=== PATIENT | male | born 1945 | race Caucasian/White ===

== ENCOUNTER → 2017-07-16 | Outpatient (CLI) | payer MEDICARE, OTHER | LOC: COL.RAD 10:11 | DX: Z13.6 Encounter for screening for cardiovascular disorders (principal) ==

== ENCOUNTER → 2018-01-30 | Outpatient (CLI) | payer MEDICARE, OTHER | LOC: COL.RAD 13:13 | DX: M79.604 Pain in right leg (principal); R60.0 Localized edema ==

== ENCOUNTER → 2022-02-27 | Outpatient (CLI) | payer MEDICARE, OTHER | LOC: COL.VAS 09:30 | DX: N18.4 Chronic kidney disease, stage 4 (severe) (principal) ==

== ENCOUNTER → 2022-05-11 | Outpatient (CLI) | payer MEDICARE, OTHER | LOC: COL.RAD 14:38 | DX: Z01.818 Encounter for other preprocedural examination (principal) ==

== ENCOUNTER 2022-11-04 11:54 | Inpatient (IN) | payer MEDICARE, OTHER ==
[~2022-11-04] VITALS: Ht 180.3 cm; Wt 80.9 kg
[~2022-11-04 11:54] MED LIST: ASPIRIN 81M81 MG/TA2 PO; BRILINTA90 MG PO; CALCITRIOL PO; JANUVIA50 MG PO; LASIX 40MG TABL40 MG PO; LIPITOR 80MG80 MG PO; LIPITOR20 MG PO; LOTREL 10 MG-201 CAP; LOTREL 5/20 CAP1 CAP PO; NITRO-DUR0.4 MG/PAT TD; NORCO 325 MG-51 TAB PO; NOVOLOG FLEX100 U/ML SQ; TRESIBA FL100 UNIT/1 SQ; TRIAMCINOLONE A15 G3; VELTASSA8.4 GM PO
[2022-11-04 12:27] LABS: MEAN CELL VOLUME 91 fl (80.0-100.0); MEAN CORPUSCULAR HGB CONC 34 g/dl (33.0-37.0); PLATELET COUNT 145 K/mm3 (130-400); RED BLOOD COUNT 3.07 M/mm3 (4.20-5.60); REDCELL DISTRIBUTION WIDTH-CV 15.5 % (11.5-14.5)
[2022-11-04 12:38] LABS: HEMATOCRIT 27.8 % (42.0-52.0); HEMOGLOBIN 9.4 g/dl (13.5-18.0); MEAN CORPUSCULAR HEMOGLOBIN 31 pg (27-31)
[2022-11-04 12:56] LABS: BAND 1 % (0-10); BURR CELLS 3+; LYMPHOCYTE 2 % (20.0-51.0); NEUTROPHILS 93 % (42.0-75.2)
[2022-11-04 12:57] LABS: ANISOCYTOSIS 1+; PLATELET ESTIMATE NORMAL (NORMAL)
[2022-11-04 13:13] LABS: ALBUMIN 1.8 gm/dL (3.4-4.8); BILIRUBIN,TOTAL 0.7 mg/dL (0.2-1.2); CALCIUM 8.3 mg/dL (8.4-10.2); CREATININE, serum 4.16 mg/dL (0.72-1.25); POTASSIUM 4.5 mmol/L (3.5-4.5); TOTAL PROTEIN 5.4 gm/dL (6.2-8.1)
[2022-11-04 14:26] LABS: COLLECTION METHOD CATHETER
[2022-11-04 14:35] LABS: AMORPHOUS CRYSTAL Present (NOT PRESENT); BUDDING YEAST Present (NOT PRESENT); MUCOUS Present (NOT PRESENT); SQUAMOUS EPITHELIAL 0-2 /hpf (0-10); URINE BACTERIA Rare /hpf (NONE SEEN); URINE RBC 20-50 /hpf (0-2)
[2022-11-04 14:44] LABS: URINE APPEARANCE Cloudy (CLEAR/HAZY); URINE COLOR Yellow (YELLOW); URINE GLUCOSE TRACE (NEGATIVE); URINE KETONE 2+ (NEGATIVE); URINE NITRATE Negative (NEGATIVE); URINE PROTEIN(semi-quant) 3+ (NEGATIVE); URINE UROBILINOGEN 0.2 E.U/dL (0.2-1.0)
[2022-11-04 14:45] LABS: URINE BLOOD 3+ (NEGATIVE)
--- NOTE | 2022-11-04 17:15 | NUR ---
LEONA ARRIVED FROM ED IN STABLE CONDITION, ASSESSMENT COMPLETE, PATIENT AWAKE AND ALERT,RESTING IN BED, FAMILY AT BEDSIDE, VITAL SIGNS STABLE. PER PATIENT HE TAKES NO HOME MEDICATIONS BESIDES HIS SLIDING SCALE INSULINS. PATIENT STATES HE DISCONTINUED ALL OTHER MEDICATIONS WHEN HE BEGAN DIALYSIS.
[2022-11-04 18:02] VITALS: BP 116/54; PULSE 92; TEMP 98.3
[2022-11-04 19:54] VITALS: BP 111/49; PULSE 100; TEMP 98.5
--- NOTE | 2022-11-04 23:40 | NUR ---
LAB CALLED WITH A POSITIVE BLOOD PANEL PCR FOR THIS PATIENT AT 2317. STAPH AUREUS WAS THE PRELIMINARY RESULT. THIS RESULT WAS CALLED TO JAYCOB GIBBS APRN AT 1460. NO NEW ORDERS AT THIS TIME.
[2022-11-04 23:53] VITALS: BP 131/49; PULSE 108; TEMP 99.4
[2022-11-05] VITALS (7 sets, daily range): BP systolic 106–133; BP diastolic 42–56; PULSE 103–108; TEMP 97.8–100
[2022-11-05 06:20] LABS: MEAN CELL VOLUME 87 fl (80.0-100.0); MEAN CORPUSCULAR HGB CONC 36 g/dl (33.0-37.0); MEAN PLATELET VOLUME 10.7 fl (7.4-10.4); PLATELET COUNT 127 K/mm3 (130-400); RED BLOOD COUNT 2.63 M/mm3 (4.20-5.60); REDCELL DISTRIBUTION WIDTH-CV 15.3 % (11.5-14.5)
[2022-11-05 06:29] LABS: HEMATOCRIT 22.8 % (42.0-52.0); HEMOGLOBIN 8.1 g/dl (13.5-18.0); MEAN CORPUSCULAR HEMOGLOBIN 31 pg (27-31)
[2022-11-05 06:39] LABS: ALBUMIN 1.3 gm/dL (3.4-4.8); CALCIUM 7.7 mg/dL (8.4-10.2); CREATININE, serum 4.67 mg/dL (0.72-1.25); PHOSPHOROUS 4.6 mg/dL (2.3-4.7); POTASSIUM 4.6 mmol/L (3.5-4.5)
[2022-11-05 07:33] LABS: BAND 15 % (0-10); BURR CELLS 1+; LYMPHOCYTE 6 % (20.0-51.0); METAMYELOCYTE 1 % (0-0); NEUTROPHILS 75 % (42.0-75.2); OVALOCYTES 2+; PLATELET ESTIMATE NORMAL (NORMAL); SCHISTOCYTES 1+
--- NOTE | 2022-11-05 07:42 | NUR ---
0555 JAYCOB GIBBS APRN NOTIFIED OF PTS OXYGEN SATURATIONS OF 86-88% ON RA. A NEW ORDER WAS RECEIVED FOR OXYGEN VIA NC. AN UPDATE REGARDING THE PTS TEMPERATURES AND OTHER VITAL SIGNS GIVEN. WILL MONITOR.
--- NOTE | 2022-11-05 09:11 | NUR ---
PATIENT REFUSING PT AND OT.
--- NOTE | 2022-11-05 13:08 | NUR ---
Initial visit: Global Marketing Operations Manager stopped by room on rounds. Pt was resting and content. Pt appreciated the visit. Pt has no needs right now. Global Marketing Operations Manager will follow up as needed.
--- NOTE | 2022-11-05 13:14 | NUR ---
INFORMED PATIENT WE WOULD BE SWITCHING HIM TO A SPECIALTY BED TODAY TO HELP PREVENT HIM FROM GETTING ANY SKIN BREAK DOWN D/T HIM BEING UNABLE TO CHANGE POSITION IN BED ON HIS OWN. PATIENT REPLIED "WHATEVER."
--- NOTE | 2022-11-05 14:15 | NUR ---
PATIENT AWAKE AND ALERT. RESTING IN BED. PATIENTS FAMILY AT BEDSIDE. INFORMED PATIENT WE WOULD BE MOVING HIM TO A SPECIALTY BED TO PREVENT SKIN BREAKDOWN. PATIENT ADAMENTLY REFUSED DESPITE EDUCATION.
--- NOTE | 2022-11-05 15:10 | NUR ---
Telehealth visit conducted with Dr. Renzo Spaulding, Infectious Disease. Patient consented to visit. Patient's extended family present. Vegetable Buncher initiated without any difficulties during exam. All questions were answered by Dr. Spaulding.
--- NOTE | 2022-11-05 16:20 | NUR ---
Music Journalist met with Patient at bedside to conduct Care Mangment Assessment and discuss discharge planning. Patient lives at home with his and 96 year-old mother. Patient is established with PCP Dr. Tamayo and is covered by [facility] and [facility]. Patient denies the use of O2, DME, and home healthcare prior to admission. PAtient does recieve non-healthcare home services. Patient intends to discharge home, but was ubnable to meet with PT/OT on this day and awaits reccomendation for discharge needs.
--- NOTE | 2022-11-05 17:00 | NUR ---
PATIENT RESTING IN BED, AWAKE AND ALERT. CALL LIGHT WITH IN REACH. BED ALARM ON. PATIENT DENEIS ANY NEEDS OR COMPLAINTS AT THIS TIME.
[2022-11-06] VITALS (11 sets, daily range): BP systolic 112–165; BP diastolic 48–69; PULSE 76–111; TEMP 97.9–98.8
[2022-11-06 07:04] LABS: MEAN CELL VOLUME 87 fl (80.0-100.0); MEAN CORPUSCULAR HGB CONC 35 g/dl (33.0-37.0); MEAN PLATELET VOLUME 10.8 fl (7.4-10.4); PLATELET COUNT 162 K/mm3 (130-400); RED BLOOD COUNT 2.32 M/mm3 (4.20-5.60); REDCELL DISTRIBUTION WIDTH-CV 15.3 % (11.5-14.5)
[2022-11-06 07:09] LABS: HEMATOCRIT 20.2 % (42.0-52.0); MEAN CORPUSCULAR HEMOGLOBIN 30 pg (27-31)
[2022-11-06 07:20] LABS: ALBUMIN 1.2 gm/dL (3.4-4.8); CALCIUM 7.7 mg/dL (8.4-10.2); CREATININE, serum 5.51 mg/dL (0.72-1.25); PHOSPHOROUS 4.1 mg/dL (2.3-4.7); POTASSIUM 4.6 mmol/L (3.5-4.5)
[2022-11-06 07:54] LABS: BAND 2 % (0-10); LYMPHOCYTE 4 % (20.0-51.0); METAMYELOCYTE 2 % (0-0); NEUTROPHILS 91 % (42.0-75.2)
[2022-11-06 07:56] LABS: ANISOCYTOSIS 1+; PLATELET ESTIMATE NORMAL (NORMAL)
[2022-11-06 07:57] LABS: BURR CELLS 3+
--- NOTE | 2022-11-06 08:55 | NUR ---
VANCE Stanley notified of critical lab values. Verbalized understanding
--- NOTE | 2022-11-06 15:22 | NUR ---
Pt refusing requests from therapy and nursing staff to get out of bed. This afternoon, patient requests to get up to use bedside commode. Patient very weak, requiring major assistance from 2 staff members to stand and pivot to commode. Reinforced necessity to work with therapy and to get up when encouraged.
[2022-11-06 15:28] LABS: HEMATOCRIT 21.7 % (42.0-52.0); HEMOGLOBIN 8.1 g/dl (13.5-18.0)
--- NOTE | 2022-11-06 15:40 | NUR ---
Telehealth visit conducted with Dr. Renzo Spaulding, Infectious Disease. Patient consented to visit. Patient's nurse present. Bottling Supervisor initiated without any difficulties during exam. All questions were answered by Dr. Spaulding.
[2022-11-07] VITALS: BP 130/52; PULSE 97; TEMP 97.9
[2022-11-07 04:50] VITALS: BP 128/45; PULSE 102; TEMP 97.7
[2022-11-07 06:42] LABS: MEAN CORPUSCULAR HGB CONC 37 g/dl (33.0-37.0); MEAN PLATELET VOLUME 10.6 fl (7.4-10.4); PLATELET COUNT 204 K/mm3 (130-400); RED BLOOD COUNT 2.65 M/mm3 (4.20-5.60); REDCELL DISTRIBUTION WIDTH-CV 14.9 % (11.5-14.5)
[2022-11-07 06:46] LABS: HEMATOCRIT 21.7 % (42.0-52.0); MEAN CELL VOLUME 82 fl (80.0-100.0); MEAN CORPUSCULAR HEMOGLOBIN 30 pg (27-31)
[2022-11-07 06:58] LABS: ALBUMIN 1.2 gm/dL (3.4-4.8); CALCIUM 7.9 mg/dL (8.4-10.2); CREATININE, serum 6.42 mg/dL (0.72-1.25); POTASSIUM 4.6 mmol/L (3.5-4.5)
[2022-11-07 07:13] LABS: BAND 29 % (0-10); LYMPHOCYTE 3 % (20.0-51.0); METAMYELOCYTE 1 % (0-0); NEUTROPHILS 66 % (42.0-75.2); OVALOCYTES 1+
[2022-11-07 07:14] LABS: TARGET CELLS 1+
[2022-11-07 07:17] LABS: BURR CELLS 1+; PLATELET ESTIMATE NORMAL (NORMAL)
[2022-11-07 07:39] VITALS: BP 134/52; PULSE 101; TEMP 98.1
[2022-11-07 07:46] LABS: PATHOLOGY DIFF REVIEW OK
--- NOTE | 2022-11-07 08:20 | NUR ---
Pt to dialysis via bed. Pt noted to be drowsy, will open eyes to name.
[2022-11-07 12:00] VITALS: BP 137/69; PULSE 107; TEMP 97.8
--- NOTE | 2022-11-07 12:40 | NUR ---
Pt arrives back to room from dialysis. Blood cx drawn while in dialysis. Echo completed and telemetry applied upon return to room.
[2022-11-07 15:14] VITALS: BP 148/58; PULSE 117; TEMP 98.3
--- NOTE | 2022-11-07 15:23 | NUR ---
Hospice Care Transitions Coordinator met with Patient and at bedside to discuss discharge planning. SW informed Family that SNF is reccomended and provided them with a list so as to review and select two preferences.
--- NOTE | 2022-11-07 16:33 | NUR ---
Telehealth visit conducted with Dr. Renzo Spaulding, Infectious Disease. Patient consented to visit. Patient's and son present. Family request test results be called to sol Nascimento in chart. Rack Room Worker initiated without any difficulties during exam. All questions were answered by Dr. Spaulding.
[2022-11-07 19:48] VITALS: BP 129/51; PULSE 105; TEMP 99.2
[2022-11-08] VITALS (11 sets, daily range): BP systolic 72–133; BP diastolic 38–95; PULSE 80–119; TEMP 97.2–98.7
[2022-11-08 07:26] LABS: MEAN CORPUSCULAR HGB CONC 35 g/dl (33.0-37.0); MEAN PLATELET VOLUME 10.3 fl (7.4-10.4); PLATELET COUNT 231 K/mm3 (130-400); RED BLOOD COUNT 2.57 M/mm3 (4.20-5.60); REDCELL DISTRIBUTION WIDTH-CV 15.6 % (11.5-14.5)
[2022-11-08 07:28] LABS: HEMATOCRIT 22.3 % (42.0-52.0); HEMOGLOBIN 7.7 g/dl (13.5-18.0); MEAN CELL VOLUME 87 fl (80.0-100.0); MEAN CORPUSCULAR HEMOGLOBIN 30 pg (27-31)
[2022-11-08 07:32] LABS: ALBUMIN 1.1 gm/dL (3.4-4.8); CALCIUM 7.9 mg/dL (8.4-10.2); CREATININE, serum 4.76 mg/dL (0.72-1.25); PHOSPHOROUS 4.4 mg/dL (2.3-4.7); POTASSIUM 4.5 mmol/L (3.5-4.5)
[2022-11-08 08:59] LABS: BAND 4 % (0-10); EOSINOPHIL 1 % (0-4); LYMPHOCYTE 3 % (20.0-51.0); MYELOCYTE 3 % (0-0); NEUTROPHILS 83 % (42.0-75.2)
[2022-11-08 09:00] LABS: ANISOCYTOSIS 1+; BURR CELLS 3+; PLATELET ESTIMATE NORMAL (NORMAL)
[2022-11-08 09:01] LABS: SCHISTOCYTES 1+
[2022-11-08 12:37] LABS: INR 1.2 (0.8-3.0); PROTHROMBIN TIME 13.7 SECONDS (9.7-12.8)
[2022-11-08 14:33] LABS: HEMATOCRIT 18.1 % (42.0-52.0)
--- NOTE | 2022-11-08 14:37 | NUR ---
CRITICAL HGB OF 6.0 RECEIVED FROM LAB, VOICEMAIL LEFT WITH VANCE DUTTON WITH NEPHROLOGY AT 1435 WITH CALL BACK NUMBER.
--- NOTE | 2022-11-08 14:40 | NUR ---
Telehealth visit conducted with Dr. Renzo Spaulding, Infectious Disease. Patient consented to visit. Telecommunication initiated without any difficulties during exam. All questions were answered by Dr. Spaulding
--- NOTE | 2022-11-08 18:35 | NUR ---
PATIENT HAS BEEN HAVING MULTIPLE BOWEL MOVEMENTS TODAY WITH CLOTS. OCCULT CAME BACK +, AND PATIENT IS ALSO + FOR NOROVIRUS. PATIENT HAS A RW 20G AND A LFA FISTULA THAT IS STILL MATURING, BUT PATIENT DID HAVE DIALYSIS ON 11/07 BECAUSE THE RSIDE HD CATH BECAME INFECTED (+FOR STAPH.a) AND HAD TO DC. RUNS TACHY ON TELEMETRY. HE IS INCONTINENT OF BOWEL AND BLADDER, BUT WILL DO THE BEST HE CAN TO ASK FOR THE BED [place]. PATIENT HEMOGLOBIN WAS CRITICAL TODAY AT 6. MD. ORDERED 2 UNITS OF PRBC. 1ST UNIT IS CURRENTLY INFUSING. PATIENT HAS HAS SOFT PRESSURES IN THE 90S, SYSTOLIC, BUT IS TOLERATING TRANSFUSION WELL. GI WAS CONSULTED TODAY AND ORDERED AN EGD+COLONOSCOPY FOR 11.09.22. PATIENT IS ON CLEAR LIQUIDS UNTIL MIDNIGHT, AND WILL THEN GO TO NPO. PATIENT HAS BEEN ACCEPTED TO [facility] AND ALSO ACCEPTED TO [facility]. PATIENT HAS AGREED TO TRY AND DRINK HIS GOLIGHLTY PREP. PATIENT IS UNHAPPY ABOUT DRINKING THE PREP. PATIENT IS ALSO ACHS. RUNS IN THE 240S. GETS LEVEMIR 2X PER DAY. BED ALARM ON.
--- NOTE | 2022-11-08 21:00 | NUR ---
PATIENT IS WEAK AND APPEARS PALE.SKIN IS COOL AND CLAMMY.PATIENT DENIES PAIN AND SOB.PATIENT IS ON BOWEL PREP.PATIENT IS INCONTINENT OF BOWELS.PATIENT IS DUE FOR A SECOND UNIT OF BLOOD.NO POST TRANSFUSION REACTION NOTED.BG 178 MG/DL.INSULIN ADMINISTERED PER MAR.PATIENT WAS CHANGED AND REPOSITIONED.CALL LIGHT IS WITHIN REACH.SAFETY MEASURES INPLACE.NO OTHER NEEDS AT THIS TIME.
--- NOTE | 2022-11-09 01:00 | NUR ---
SECOND UNIT OF BLOOD WAS COLLECTED FROM BTU.PATIENT HAD PULLED OUT HIS IV.PATIENT WAS CLAMMY BG CHECK 243 MG/DL.PATIENT STATES THAT HE FEELS TIRED AND WEAK.PATIENT WAS A HARD STICK.THE CHARGE NURSE AND HOUSE SUPERVISER WERE INFORMED.THEY TRIED SEVERAL TIMES STARTING ONE.IV ACCESS WAS FINALLY INSERTED AT THE [facility].PATIENT'S BP WAS 72/40 WITH AUTOMATIC BP MACHINE. RECHECK WAS DONE USING A MANUAL BP AND IT WAS THE SAME.BLOOD WAS VERIFIED AND COMMENCED.ON CHECKING THE PATIENT'S CHART THE VERICATION DID NOT RECORD.I INFORMED THE CHARGE NURSE AND WE GOT ANOTHER COMPUTER AND TRIED DOCUMENTING.THIS RN TRIED TO GET ANOTHER SET OF VITALS ON THE LE THE PATIENT HAD A LT ARM RESTRICTION.PATIENT WAS MOVING IN BED AND THE BP DID NOT RECORD ON THE MACHINE.AFTER 20 MINUTES WHEN BLOOD WAS COMMENCED PATIENT CODED. .PATIENT STARTED FROTHING FROM THE MOUTH.ASSESSMENT WAS DONE.PATIENT BECAME UNRESPONSIVE.WITH THE HELP OF THE CHARGE NURSE A CODE BLUE WAS CALLED.CPR WAS COMMENCED RESCUSCITATION TEAM ARRIVED AND TOOK OVER.PATIENT DID NOT HAVE A CODE RECORDED IN THE CHART. WAS INFORMED AND SAID THE ER DR CAN REVIEW THE PT.TRIED TO CONTACT FAMILY THEY WERE NOT AVAILABLE ON PHONE.RESUSCUTATION WAS CONTINUED.PATIENT'S SON CALLED LATER AND STATED THAT THE PATIENT IS A DNR.PATIENT HAD BEEN INTUBATED,RECEIVED RESCUSCIATIVE MEDS.PATIENT HAD A PULSE AFTER SOME MINUTES NO PULSE WAS FELT IN PALPATION.PATIENT WAS CERTIFIED .PATIENT'S FAMILY WAS NOTIFIED.BODY WAS CLEANED AND LEFT IN THE ROOM.FAMILY ON THE WAY MIKE THE HOSPITAL.
[2022-11-09 01:09] VITALS: PULSE 0
--- NOTE | 2022-11-09 01:41 | NUR ---
[facility] notified of TOD,11/09/22 @ 0045. Not a candidate for donation.
--- NOTE | 2022-11-09 06:44 | NUR ---
PATIENT'S BELONGINGS IN THE ROOM.NABIL.HEARING AIDS,PHONE,SHOES,UPTWISTER TENDER AND BLANKET.
--- NOTE | 2022-11-09 07:50 | NUR ---
Entered pts to room, no changes at this time.
--- NOTE | 2022-11-09 08:37 | NUR ---
home obtained pt at this time. Personal belongings held at nurses station for family to obtain later this morning.
== END 2022-11-09 08:39 | disposition expired | DRG 314 ==
LOC: COL.ER 11:54 → MEDICAL 14:56 → ICU 11-09 00:46 → MEDICAL 11-09 08:39
PROVIDERS: Emergency Medicine; Nurse Practitioner; Registered Nurse; ADMIT Internal Medicine Nephrology
PROC: 30233N1 Transfusion of Nonautologous Red Blood Cells into Peripheral Vein, Percutaneous Approach (ICD-10-PCS; 2022-11-06)
PROC: 5A1D70Z Performance of Urinary Filtration, Intermittent, Less than 6 Hours Per Day (ICD-10-PCS; 2022-11-07)
PROC: 5A12012 Performance of Cardiac Output, Single, Manual (ICD-10-PCS; principal; 2022-11-09)
DX: T80.211A Bloodstream infection due to central venous catheter, initial encounter (principal); A41.9 Sepsis, unspecified organism; N18.6 End stage renal disease; I26.90 Septic pulmonary embolism without acute cor pulmonale; E87.20 Acidosis, unspecified; E87.1 Hypo-osmolality and hyponatremia; Z66 Do not resuscitate; I12.0 Hypertensive chronic kidney disease with stage 5 chronic kidney disease or end stage renal disease; K92.2 Gastrointestinal hemorrhage, unspecified; K22.10 Ulcer of esophagus without bleeding; A08.39 Other viral enteritis; N39.0 Urinary tract infection, site not specified; I46.9 Cardiac arrest, cause unspecified; R57.1 Hypovolemic shock; Z20.822 Contact with and (suspected) exposure to COVID-19; E11.22 Type 2 diabetes mellitus with diabetic chronic kidney disease; E11.40 Type 2 diabetes mellitus with diabetic neuropathy, unspecified; E11.319 Type 2 diabetes mellitus with unspecified diabetic retinopathy without macular edema; E11.21 Type 2 diabetes mellitus with diabetic nephropathy; E78.5 Hyperlipidemia, unspecified; E66.9 Obesity, unspecified; D63.1 Anemia in chronic kidney disease; E11.65 Type 2 diabetes mellitus with hyperglycemia; Y83.8 Other surgical procedures as the cause of abnormal reaction of the patient, or of later complication, without mention of misadventure at the time of the procedure; B95.61 Methicillin susceptible Staphylococcus aureus infection as the cause of diseases classified elsewhere; K29.70 Gastritis, unspecified, without bleeding; K26.9 Duodenal ulcer, unspecified as acute or chronic, without hemorrhage or perforation; B95.7 Other staphylococcus as the cause of diseases classified elsewhere; Z90.89 Acquired absence of other organs; Z95.5 Presence of coronary angioplasty implant and graft; Z79.4 Long term (current) use of insulin; Z79.82 Long term (current) use of aspirin; Z99.2 Dependence on renal dialysis; Z68.24 Body mass index [BMI] 24.0-24.9, adult; Z23 Encounter for immunization
CPT/HCPCS: C9113; J0171; J0690; J0692; J1580; J1815; J3370; J7040; J7120; P9016; Q5105; Q9967